=== PATIENT | female | born 1960 | race Caucasian/White ===

== ENCOUNTER 2016-06-19 08:13 | Day surgery (SDC) | payer OTHER ==
--- NOTE | 2016-04-16 10:08 | History and Physical ---
History & Physical Plan of care discussed with Dr. Nobles CHIEF COMPLAINT: Bilateral lower extremity neuropathic pain HISTORY OF PRESENT ILLNESS: Mrs. Lopez is a 56 year old white female that has been diagnosed with peripheral neuropathy of unknown etiology in 1997. Patient has a history of lumbar post-laminectomy syndrome and has chronic bilateral lower extremity neuropathic pain. Lumbar pain is well controlled with a sedentary lifestyle since she went on disability. There is numbness, burning, aching, and throbbing pain located from the ankles to the toes. Patient did have a spinal cord stimulator implanted by Dr. Villasenor on 03/20/2007 which did provide adequate pain relief until January 2015. Patient rates her pain a 2/ 10 at its best and 9/10 at its worst. Symptoms are aggravated by standing and walking. Symptoms are mildly relived with lying supine and stretching. There is associated mood changes and sleep disturbances. Currently she is utilizing Amitriptyline, Flexeril, Cymbalta, and Tramadol with fair relief. She was scheduled for a battery replacement but it was cancelled as her hemoglobin A1C was found to be 12 at the time. She was also showing T-wave inversion on EKG. She has been evaluated by cardiologists with a negative workup and her blood sugar levels have improved and most recent hemoglobin A1C was 7. Patient denies any leg weakness, foot drop, saddle anesthesia, or falls. PAST MEDICAL HISTORY: 1. Anxiety disorder 2. Depressive disorder 3. Obesity 4. Peripheral neuropathy 5. Lumbar post-laminectomy syndrome 6. History of left lower leg fracture PAST SURGICAL HISTORY: 1. History of spinal cord stimulator implantation 2007 2. History of anterior cruciate ligament repair of both knees 3. History of appendectomy 4. History of lumbar surgery SOCIAL HISTORY: Patient is disabled. She is . Former smoker. No alcohol or illicit substance abuse. ALLERGIES: Gabapentin, penicillin MEDICATIONS: 1. Amitriptyline 100 mg daily at bedtime 2. Metformin 1000 mg twice daily 3. Tums 2 tablets by mouth as needed 4. Glipizide 2.5mg tablet twice daily 5. Ativan 1 mg every 12 hours as needed for anxiety 6. Toprol 50mg tablet daily 7. Simvastatin 40 mg daily 8. Cyclobenzaprine 10mg three times daily 9. Tramadol 50 mg 4 times daily REVIEW OF SYSTEMS: Denies any constitutional, cardiac, pulmonary, neurological, GI, , extremity, endocrine, neuro, ENT, dermatological, or musculoskeletal complaints other than stated in HPI PHYSICAL EXAMINATION: VITAL SIGNS: Per admission GENERAL: Mrs. Lopez is a 56 y/o white female that appears her stated age. Speech and cognition is intact. Sitting quietly in the exam room, in no acute distress. Patient appears mildly anxious. HEAD: Normocephalic; atraumatic. EYES: Pupils are round, equal, and reactive to light; EOM intact. ENT: No external ear discharge or lesions. No rhinorrhea or epistaxis. No mucosal lesions. CHEST: Regular chest respiration and excursion. PULM: Clear to auscultation. No wheezes, rales or rhonchi. EXTREMITIES: There is 5/5 strength of the bilateral lower extremities. There is positive SLR bilaterally. No tenderness of the bilateral trochanteric bursa. Sensation is decreased along the bilateral feet in a stocking distribution. BACK: Well healed surgical incision of the lumbar spine. Mild loss of lumbar lordosis. Decreased ROM in all planes. No midline or facet tenderness. No SI joint tenderness. No paravertebral, quadratus lumborum, gluteal, piriformis muscle spasm or myoneural trigger points. NEURO: CN II-XII grossly intact with no focal deficits noted. Normal gait. Patellar Reflex L +2 R +2 Achilles Reflex L +2 R +2 SKIN: Battery is present along the right gluteal region with a horizontal incision. No edema, erythema, or skin breakdown noted. ASSESSMENT: Chronic peripheral neuropathy of the bilateral lower extremities. TREATMENT: Patient initially had the spinal cord stimulator implanted in 2007 which did provide adequate pain relief until 2014 when the battery would no longer charge. Patient had the stimulator interrogated by the [employer] civil rights representative and has confirmed that the battery is . Patient was supposed to have the battery replaced last year but her blood glucose levels were high and there were EKG changes. Cardiology workup was negative and blood sugar levels have improved since then. Recommend replacing the battery and possibly spinal cord stimulator leads. Risks and benefits were reviewed and patient would like to proceed with the surgery at [facility].
[2016-04-18 11:17] VITALS: BMI 39.0
--- NOTE | 2016-04-18 12:02 | PAT Medication Instructions ---
Service Date Apr 18, 2016. Current Home Medication List Calcium Carbonate (Tums), 2 TAB PO PRN Cyclobenzaprine Hcl (Flexeril), 10 MG PO TID PRN for Pain Glipizide (Glipizide), 2 TAB PO BID Lorazepam (Ativan *), 1 MG PO QID PRN for PRN Metformin Hcl (Glucophage), 500 MG PO BID Metoprolol Succinate (Metoprolol Succinate ER), 1 TAB PO QPM Simvastatin (Simvastatin), 1 TAB PO HS Spironolactone & Hydrochloroth (Spironolactone/Hydrochlor), 1 TAB PO QAM Tramadol (Ultram), 50-100 MG PO QID PRN for PRN Medication Instructions For Your Scheduled Surgery - Hold the following medications 48 hours prior to surgery: Metformin Hcl (Glucophage), 500 MG PO BID - Hold the following medications the morning of surgery: Glipizide (Glipizide), 2 TAB PO BID Spironolactone & Hydrochloroth (Spironolactone/Hydrochlor), 1 TAB PO QAM Cyclobenzaprine Hcl (Flexeril), 10 MG PO TID PRN for Pain Calcium Carbonate (Tums), 2 TAB PO PRN - Take the following medications the morning of surgery with a sip of water: Lorazepam (Ativan *), 1 MG PO QID PRN for PRN - Take the following medications as scheduled the night before surgery: Simvastatin (Simvastatin), 1 TAB PO HS Metoprolol Succinate (Metoprolol Succinate ER), 1 TAB PO QPM Lorazepam (Ativan *), 1 MG PO QID PRN for PRN Glipizide (Glipizide), 2 TAB PO BID Cyclobenzaprine Hcl (Flexeril), 10 MG PO TID PRN for Pain Calcium Carbonate (Tums), 2 TAB PO PRN If you have any questions please call us at [phone] (Catarina Wolfe PA-C) or [phone] or [phone]
[2016-04-18 12:47] LABS: URINE APPEARANCE CLEAR (CLEAR); URINE BILIRUBIN NEG (NEG); URINE COLOR YELLOW; URINE NITRITE NEG (NEG); URINE PH 5.5 (4.5-7.5); URINE SPECIFIC GRAVITY 1.005 (1.000-1.030); UROBILINOGEN NEG (NEG)
[2016-04-18 12:54] LABS: MANUAL MICROSCOPIC REQUIRED? NO; REVIEW REQ? NO
[2016-04-18 13:01] LABS: ESTIMATED AVERAGE GLUCOSE 192 mg/dl; HA1C FLAG Normal (Normal)
[2016-04-18 13:13] LABS: BUN/CREATININE RATIO 19.9 (10-20); CALCIUM 9.6 mg/dl (8.5-10.1); CREATININE 1.1 mg/dl (0.60-1.20); POTASSIUM 4.1 mmol/L (3.5-5.1)
--- NOTE | 2016-06-18 15:01 | History and Physical ---
History & Physical Date of Service Jun 18, 2016. History & Physical Plan of care discussed with Dr. Nobles CHIEF COMPLAINT: Bilateral lower extremity neuropathic pain HISTORY OF PRESENT ILLNESS: Mrs. Lopez is a 56 year old white female that has been diagnosed with peripheral neuropathy of unknown etiology in 1997. Patient has a history of lumbar post-laminectomy syndrome and has chronic bilateral lower extremity neuropathic pain. Lumbar pain is well controlled with a sedentary lifestyle since she went on disability. There is numbness, burning, aching, and throbbing pain located from the ankles to the toes. Patient did have a spinal cord stimulator implanted by Dr. Villasenor on 03/20/2007 which did provide adequate pain relief until January 2015. Patient rates her pain a 2/ 10 at its best and 9/10 at its worst. Symptoms are aggravated by standing and walking. Symptoms are mildly relived with lying supine and stretching. There is associated mood changes and sleep disturbances. Currently she is utilizing Amitriptyline, Flexeril, Cymbalta, and Tramadol with fair relief. She was scheduled for a battery replacement but it was cancelled as her hemoglobin A1C was found to be 12 at the time. She was also showing T-wave inversion on EKG. She has been evaluated by cardiologists with a negative workup and her blood sugar levels have improved and most recent hemoglobin A1C was 7. Patient denies any leg weakness, foot drop, saddle anesthesia, or falls. PAST MEDICAL HISTORY: 1. Anxiety disorder 2. Depressive disorder 3. Obesity 4. Peripheral neuropathy 5. Lumbar post-laminectomy syndrome 6. History of left lower leg fracture 7. Diabetes Mellitus PAST SURGICAL HISTORY: 1. History of spinal cord stimulator implantation 2007 2. History of anterior cruciate ligament repair of both knees 3. History of appendectomy 4. History of lumbar surgery SOCIAL HISTORY: Patient is disabled. She is . Former smoker. No alcohol or illicit substance abuse. ALLERGIES: Gabapentin, penicillin MEDICATIONS: 1. Tramadol 50 mg 4 times daily 2. Metformin 500 mg twice daily 3. Tums 2 tablets by mouth as needed 4. Glipizide 5 mg tablet twice daily 5. Ativan 1 mg every 6 hours as needed for anxiety 6. Toprol 50mg tablet daily 7. Simvastatin 20 mg daily 8. Cyclobenzaprine 10mg three times daily REVIEW OF SYSTEMS: Denies any constitutional, cardiac, pulmonary, neurological, GI, , extremity, endocrine, neuro, ENT, dermatological, or musculoskeletal complaints other than stated in HPI PHYSICAL EXAMINATION: VITAL SIGNS: Per admission GENERAL: Mrs. Lopez is a 56 y/o white female that appears her stated age. Speech and cognition is intact. Sitting quietly in the exam room, in no acute distress. Patient appears mildly anxious. HEAD: Normocephalic; atraumatic. EYES: Pupils are round, equal, and reactive to light; EOM intact. ENT: No external ear discharge or lesions. No rhinorrhea or epistaxis. No mucosal lesions. CHEST: Regular chest respiration and excursion. PULM: Clear to auscultation. No wheezes, rales or rhonchi. EXTREMITIES: There is 5/5 strength of the bilateral lower extremities. There is positive SLR bilaterally. No tenderness of the bilateral trochanteric bursa. Sensation is decreased along the bilateral feet in a stocking distribution. BACK: Well healed surgical incision of the lumbar spine. Mild loss of lumbar lordosis. Decreased ROM in all planes. No midline or facet tenderness. No SI joint tenderness. No paravertebral, quadratus lumborum, gluteal, piriformis muscle spasm or myoneural trigger points. NEURO: CN II-XII grossly intact with no focal deficits noted. Normal gait. Patellar Reflex L +2 R +2 Achilles Reflex L +2 R +2 SKIN: Battery is present along the right gluteal region with a horizontal incision. No edema, erythema, or skin breakdown noted. ASSESSMENT: Chronic peripheral neuropathy of the bilateral lower extremities. TREATMENT: Patient initially had the spinal cord stimulator implanted in 2007 which did provide adequate pain relief until 2014 when the battery would no longer charge. Patient had the stimulator interrogated by the [employer] membership sales representative and has confirmed that the battery is . Patient was supposed to have the battery replaced last year but her blood glucose levels were high and there were EKG changes. Cardiology workup was negative and blood sugar levels have improved since then. Recommend replacing the battery and possibly spinal cord stimulator leads. Risks and benefits were reviewed and patient would like to proceed with the surgery at [facility] on 06/19/2016.
[~2016-06-19] VITALS: Ht 170.2 cm; Wt 109.0 kg
[~2016-06-19 08:13] MED LIST: ATV1 PO; CALC500C3 PO; CLINDAMYCIN IV 900 MG in DEXTROSE 5% ADD-VANTAGE 100ML 100 ML IV SCH; CYCL10TA6 PO; GLC/500 PO; GLC5 PO; LACTATED RINGER'S 1000ML 1,000 ML IV SCH; SPIR1TAB71 PO; TPRSR/50 PO; TRAM-10 PO; ZCR20 PO
[2016-06-19 09:00] VITALS: BP 130/75; PULSE 62; TEMP 36.6; O2SAT 98; Ht 170.2 cm; Wt 109.0 kg
--- NOTE | 2016-06-19 09:02 | History & Physical Bridge Note ---
H&P Re-Evaluation Bridge Note: I have examined the patient, reviewed the History & Physical and in the interval since the performance of the History & Physical I have noted the following changes of clinical significance: No changes noted
[2016-06-19] MEDS ORDERED: HYDROCODONE/ACETAMOPHEN 5/325MG TAB PO PRN (09:15)
[2016-06-19 09:16] LABS: HEMATOCRIT 36.2 % (37-47); MEAN CELL VOLUME 85.4 fL (80-100); MEAN PLATELET VOLUME 9.2 fL (7.4-10.4); PLATELET COUNT 201 K/uL (130-400); RED BLOOD COUNT 4.24 M/uL (4.2-5.4); WHITE BLOOD COUNT 5.06 K/uL (4.8-10.8)
[2016-06-19 09:44] LABS: URINE APPEARANCE CLEAR (CLEAR); URINE BILIRUBIN NEG (NEG); URINE COLOR YELLOW; URINE NITRITE NEG (NEG); URINE PH 5.5 (4.5-7.5); URINE SPECIFIC GRAVITY 1.017 (1.000-1.030); UROBILINOGEN NEG (NEG)
[2016-06-19 09:49] LABS: MANUAL MICROSCOPIC REQUIRED? NO; REVIEW REQ? NO
[2016-06-19] MEDS ORDERED: MIDAZOLAM HCL 1 MG/ML 2ML VIAL ONE (09:50)
[2016-06-19] MEDS ORDERED: FENTANYL CITRATE INJ 50 MCG/1 ML 2 ML VIAL ONE (09:50)
[2016-06-19 09:55] LABS: CALCIUM 8.9 mg/dl (8.5-10.1); CREATININE 0.79 mg/dl (0.60-1.20); POTASSIUM 4.3 mmol/L (3.5-5.1)
[2016-06-19] MEDS ORDERED: BUPIVACAINE/EPINEPHRINE 0.25% 1:200,000 30 ML VIAL ONE (10:41)
[2016-06-19] MEDS ORDERED: LIDOCAINE HCL 2% 2 ML VIAL (20MG/ML) ONE (11:30)
[2016-06-19] MEDS ORDERED: PROPOFOL IV EMULSION 10 MG/ML 20 ML VIAL IV ONE (11:30)
--- NOTE | 2016-06-19 11:38 | [facility] Post Operative Brief Note ---
Immediate Operative Summary Operative Date Jun 19, 2016. Pre-Operative Diagnosis End of Life Battery Failure Spinal Cord Stimulator Post-Operative Diagnosis End of Life Battery Failure Spinal Cord Stimulator Procedure(s) Performed Spinal Cord Stimulator Battery with Reprogramming and Analysis Surgeon Dr. Mercy Henry Financial Coordinator Surgeon(s) none Estimated Blood Loss 5mL Findings uncomplicated replacement battery Specimens A: Explanted Hardware Drains none Anesthesia IV sedation Complication(s) None Disposition Recovery Room / PACU
--- NOTE | 2016-06-19 11:47 | Operative Note-Pain Management ---
Pain Clinic Operative Note PREOPERATIVE DIAGNOSIS: End of life Spinal Cord Stimulator Generator, POSTOPERATIVE DIAGNOSIS: Same. PROCEDURE PERFORMED: Spinal cord stimulator generator replacement, reprogramming and interrogation of the spinal cord stimulator. SURGEON: Dr. Mercy Henry. ANESTHESIA: IV sedation and local. IV FLUIDS: Per anesthetic record ESTIMATED BLOOD LOSS: 5ml URINE OUTPUT: Not measured. The patient had a spinal cord stimulator generator that was end of life required replacement The patient was counseled extensively on the risks, benefits of the procedure including infection, headache, bleeding, damage to surrounding structures and wishes to proceed as above. The consent was witnessed and a time-out was performed. An IV was started in the preoperative area and the patient was brought to the Operating Room and placed in the prone position. The patient was given Clindamycin 900mg IV prior to the start of the procedure. The patients thoracolumbar spine was prepped with Duraprep followed by Betadine solution and draped in a sterile fashion with sterile drapes and ioban. Next, 0.25% bupivacaine with 1:200K epinephrine was utilized to anesthetize the skin and subcutaneous tissue for a pocket incision. Using a 10 blade scalpel, electrocautery and Metzenbaum scissors the old spinal cord stimulator battery was dissected and disconnected. A new rechargeable spinal cord stimulator battery was connected per protocol. The new battery was interrogated and the leads were functional. Hemostasis was excellent and the pocket incision was irrigated with three bulb syringes with Bacitracin infused saline. The battery was then placed inside the pocket with retention loops behind the generator battery in the pocket incision. A single 0 silk suture connected the battery to the underlying tissues. The skin and subcutaneous tissues were then closed with running 0 V-loc sutures followed by running subcuticular 3-0 V-loc sutures. The incision and skin was cleansed and dried then Prineo dressing was placed over the incision site followed by dermabond. Next, after the dermabond had dried, 4 x 4 gauze and Tegaderms were placed. The patient was then emerged from IV sedation and the patient was placed back in the supine position with an abdominal binder in place. The patient was taken to the recovery room in stable condition without complications noted. The spinal cord stimulator was reprogrammed in recovery without complication. The patient was sent home with standard discharge instructions and will follow up in the pain clinic in 14 days. I attest to the content of the Intraoperative Record and any orders documented therein. Any exceptions are noted below.
--- NOTE | 2016-06-19 11:53 | Discharge Instructions ---
Discharge Instructions Date of Service Jun 19, 2016. Visit Reason for Visit: Bilateral Lower Extremity Neuropathic Pain Discharge Discharge Diagnosis / Problem: Battery failure spinal cord stimulator Discharge Goals Goal(s): Decrease discomfort, Improve function, Increase independence Activity Recommendations Activity Limitations: per Instructions/Follow-up section Lifting Limitations: no more than 10 pounds Exercise/Sports Limitations: until after follow-up appointment May Resume Sexual Activity: after follow-up appointment Shower/Bathe: keep incision dry (no soaking baths, please only shower after tomorrow. Sponge bathe today.) Driving or Machine Use: resume 3 days after discharge Anesthesia . Post Anesthesia Instructions: If you have had General Anesthesia or IV Sedation: * Do not drive today. * Resume driving when surgeon permits. * Do not make important decisions or sign legal documents today. * Call surgeon for: 1. Temperature elevations greater than 101 degrees F. 2. Uncontrollable pain. 3. Excessive bleeding. 4. Persistent nausea and vomiting. 5. Medication intolerance (nausea, vomiting or rash). * For nausea and vomiting use only clear liquids such as: tea, soda, bouillon until nausea subsides, then gradually increase diet as tolerated. * If you have any concerns or questions, call your surgeon's office. If physician is unavailable and it is an emergency, call 911 or go to the nearest emergency room. . Instructions / Follow-Up Instructions / Follow-Up Inspect incision daily, looking for redness, swelling, drainage. Notify pain clinic if any concerns or questions Followup at the [facility] on 07/03/16 at 2:15pm with Shelia Jeter PA-C Wear the abdominal binder 24hrs/day for 2 weeks, then while awake for 2 additional weeks May mow grass after 4-6 weeks A prescription for [place] 5/325mg was provided to you for pain after surgery. You may take 1 tablet every 6 hours as needed for pain. Diet Recommendations Recommended Home Diet: no limitations, resume previous diet Procedures Procedures Performed: Spinal Cord Stimulator Battery Replacement with Reprogramming and Analysis Pending Studies Studies pending at discharge: no Medical Emergencies . Who to Call and When: Medical Emergencies: If at any time you feel your situation is an emergency, please call 911 immediately. . Non-Emergent Contact Non-Emergency issues call your: Specialist (Pain management) Call Non-Emergent contact if: you have a fever, your pain is not controlled, your pain is worsening, your pain is unusual for you, your pain is concerning you, wound has increased drainage, wound has increased redness, wound has increased pain, you have any medication questions . Past History Medical & Surgical History: (1) Anxiety disorder (2) Peripheral neuropathy (3) Depressive disorder (4) Obesity (5) Lumbar post-laminectomy syndrome . "Provider Documentation" section prepared by Mercy Henry. . [place] Drug Monitoring Program Search Results: patient reviewed within database, no issues identified
--- NOTE | 2016-06-19 12:09 | Anesthesiology Progress Note ---
Anesthesia Post Op Note Date & Time Jun 19, 2016 at 12:08 Vital Signs Pain Intensity: 0 Vital Signs Past 12 Hours Date Time Temp Pulse Resp B/P Pulse Ox O2 Delivery O2 Flow Rate FiO2 06/19/16 12:05 36.4 59 16 122/59 97 Room Air 06/19/16 11:55 61 17 128/74 97 Room Air 06/19/16 11:46 36.7 68 16 136/74 99 Room Air 06/19/16 09:00 36.6 62 20 130/75 98 Room Air Notes Mental Status: alert / awake / arousable, participated in evaluation Pt Amnestic to Procedure: Yes Nausea / Vomiting: adequately controlled Pain: adequately controlled Airway Patency, RR, SpO2: stable & adequate BP & HR: stable & adequate Hydration State: stable & adequate Anesthetic Complications: no major complications apparent
[2016-06-19] MEDS ORDERED: ATROPINE SULFATE 0.1 MG/ML 5ML SYR IV PRN (12:15)
[2016-06-19] MEDS ORDERED: EpHEDrine SULFATE INJ 50 MG/ML AMP IV PRN (12:15)
[2016-06-19 12:18] VITALS: BP 101/62; PULSE 59; TEMP 36.6; O2SAT 98
[2016-06-19 12:45] VITALS: BP 112/65; PULSE 64; TEMP 36.5; O2SAT 98
[2016-07-03] MEDS ORDERED: ATEN-173 PO (14:38)
== END 2016-06-19 13:15 | disposition home or self-care (01) ==
LOC: C.ACU 08:13
PROVIDERS: ATTEND Anesthesiology
DX: G89.28 Other chronic postprocedural pain (principal); M96.1 Postlaminectomy syndrome, not elsewhere classified; Z46.2 Encounter for fitting and adjustment of other devices related to nervous system and special senses; G62.9 Polyneuropathy, unspecified; I10 Essential (primary) hypertension; E11.9 Type 2 diabetes mellitus without complications; F41.9 Anxiety disorder, unspecified; E78.5 Hyperlipidemia, unspecified; Z98.890 Other specified postprocedural states; Z90.89 Acquired absence of other organs; Z87.891 Personal history of nicotine dependence; E66.9 Obesity, unspecified; Z68.39 Body mass index [BMI] 39.0-39.9, adult; Z79.899 Other long term (current) drug therapy